=== PATIENT | female | born 2000 | race Caucasian/White ===

== ENCOUNTER 2023-04-14 11:31 | Emergency (ER) | payer OTHER ==
[~2023-04-14] VITALS: Ht 165.1 cm; Wt 61.4 kg
[2023-04-14 11:42] VITALS: TEMP 98.2
[2023-04-14] MEDS ORDERED: Ondansetron 4 MG/2 ML VIAL IV PRN (12:00)
[2023-04-14] MEDS ORDERED: Morphine 4 MG/ML VIAL IV PRN (12:00)
[2023-04-14] MEDS ORDERED: NS 1,000 ML IV ONE (12:00)
[2023-04-14 12:17] LABS: BASO % 0.5 % (0.0-2.0); EOS % 0.6 % (0.0-4.0); GRAN % 63.5 % (42.2-75.2); HEMATOCRIT 41.2 % (37.0-47.0); HEMOGLOBIN 14.1 g/dl (12.5-16.0); LYMPH # 1.7 K/mm3 (1.2-3.4); LYMPH % 27.4 % (20.0-51.0); MEAN CELL VOLUME 92 fl (80.0-100.0); MEAN CORPUSCULAR HEMOGLOBIN 31 pg (27-31); MEAN CORPUSCULAR HGB CONC 34 g/dl (33.0-37.0); MEAN PLATELET VOLUME 10.4 fl (7.4-10.4); MONO # 0.5 K/mm3 (0.1-0.6); MONO % 7.7 % (1.7-9.3); PLATELET COUNT 260 K/mm3 (130-400); RED BLOOD COUNT 4.49 M/mm3 (4.10-5.30); REDCELL DISTRIBUTION WIDTH-CV 11.9 % (11.5-14.5)
[2023-04-14 12:41] LABS: BILIRUBIN,TOTAL 0.8 mg/dL (0.2-1.2); CALCIUM 9.3 mg/dL (8.4-10.2); CREATININE, serum 0.7 mg/dL (0.57-1.11); POTASSIUM 3.5 mmol/L (3.5-4.5); TOTAL PROTEIN 7.6 gm/dL (6.2-8.1)
[2023-04-14] MEDS ORDERED: Iohexol 300 - 100 ML VIAL IV ONE (13:02)
[2023-04-14] MEDS ORDERED: PROTONIX 40MG T40 MG PO (14:50)
[2023-04-14] MEDS ORDERED: BENTYL 20MG20 MG/TAB PO (14:50)
[2023-04-14 14:57] VITALS: BP 127/86; PULSE 94
== END 2023-04-14 14:57 | disposition home or self-care (01) ==
LOC: COL.ER 11:31
PROVIDERS: Personal Emergency Response Attendant
DX: R10.84 Generalized abdominal pain (principal); Z90.49 Acquired absence of other specified parts of digestive tract
CPT/HCPCS: J7030; Q9967